=== PATIENT | male | born 1980 | race Caucasian/White ===

== ENCOUNTER 2019-10-29 16:21 | Emergency (ER) | payer OTHER ==
[~2019-10-29] VITALS: Ht 182.9 cm; Wt 90.1 kg
[2019-10-29 16:28] VITALS: BP 141/86
--- NOTE | 2019-10-29 17:05 | RAD ---
FOREARM LEFT History: Reason: Injury from fall today, pain with swelling / Spl. Instructions: / History: Technique: 2 views left forearm. Comparison: None. Findings: Acute transverse fracture of the left mid ulna. 8 mm radial displacement and 2 mm anterior displacement of the distal fracture fragment. There is adjacent soft tissue swelling. No additional fracture. Impression: 1. Acute displaced left mid ulnar fracture. Electronically signed by: Ayo Li DO (10/29/2019 5:02 PM) KIM
--- NOTE | 2019-10-29 17:10 | PHYS DOC ---
Past History Past Medical History: No Pertinent History Additional Past Surgical Histo: bilateral ear tubes Alcohol Use: None General Adult EDM: Chief Complaint: UPPER EXTREMITY PAIN HPI: HPI: 39-year-old male presents with left arm pain. The patient states that he hit his arm on the tail wearing of an airplane. He had a lot of pain at that time and was concerned that it might be broken. When he investigated the arm later, he noticed a divot and continued to have pain. He came here for evaluation of possible fracture. He has no other complaints or injuries at this time. Review of Systems: Review of Systems: Constitutional: Denies fever or chills Eyes: Denies change in visual acuity HENT: Denies nasal congestion or sore throat Respiratory: Denies cough or shortness of breath Cardiovascular: Denies chest pain or edema GI: Denies abdominal pain, nausea, vomiting, bloody stools or diarrhea : Denies dysuria Musculoskeletal: Left forearm pain Integument: Denies rash Neurologic: Denies headache, focal weakness or sensory changes Endocrine: Denies polyuria or polydipsia Lymphatic: Denies swollen glands Psychiatric: Denies depression or anxiety Heart Score: Risk Factors: Risk Factors: DM, Current or recent (<one month) smoker, HTN, HLP, family history of CAD, obesity. Risk Scores: Score 0 - 3: 2.5% MACE over next 6 weeks - Discharge Home Score 4 - 6: 20.3% MACE over next 6 weeks - Admit for Clinical Observation Score 7 - 10: 72.7% MACE over next 6 weeks - Early Invasive Strategies Physical Exam: PE: Constitutional: Well developed, well nourished, no acute distress, non-toxic appearance. [] HENT: Normocephalic, atraumatic, bilateral external ears normal, oropharynx moist, no oral exudates, nose normal. [] Eyes: PERRLA, EOMI, conjunctiva normal, no discharge. [] Neck: Normal range of motion, no tenderness, supple, no stridor. [] Cardiovascular:Heart rate regular rhythm, no murmur [] Lungs & Thorax: Bilateral breath sounds clear to auscultation [] Abdomen: Bowel sounds normal, soft, no tenderness, no masses, no pulsatile masses. [] Skin: Warm, dry, no erythema, no rash. [] Back: No tenderness, no CVA tenderness. [] Extremities: Tenderness over the midshaft left ulnar side, divot in the skin. [] Neurologic: Alert and oriented X 3, normal motor function, normal sensory function, no focal deficits noted. [] Psychologic: Affect normal, judgement normal, mood normal. [] Current Patient Data: Vital Signs: Vital Signs Date Time Temp Pulse Resp B/P (MAP) Pulse Ox O2 Delivery O2 Flow Rate FiO2 10/29/19 16:28 98.2 76 18 141/86 (104) 98 Room Air EKG: EKG: [] Radiology/Procedures: Radiology/Procedures: [] Impressions: FOREARM LEFT History: Reason: Injury from fall today, pain with swelling / Spl. Instructions: / History: Technique: 2 views left forearm. Comparison: None. Findings: Acute transverse fracture of the left mid ulna. 8 mm radial displacement and 2 mm anterior displacement of the distal fracture fragment. There is adjacent soft tissue swelling. No additional fracture. Impression: 1. Acute displaced left mid ulnar fracture. Electronically signed by: Ayo Nichols DO (10/29/2019 5:02 PM) [facility] DICTATED AND SIGNED BY: AYO NICHOLS DO DATE: 10/29/19 170 CC: ANNABEL LIEBERMAN DO; SHABANA CEE DO ~ Course & Med Decision Making: Course & Med Decision Making Pertinent Labs and Imaging studies reviewed. (See chart for details) The patient did break his ulna but not the radius. We have placed him in a splint and sling for comfort. He will follow-up with orthopedics for cast. He is stable for discharge at this time. [] Dragon Disclaimer: Cora Disclaimer: This electronic medical record was generated, in whole or in part, using a voice recognition dictation system. Departure Departure: Impression: Primary Impression: Fracture of left ulna Qualified Codes: S52.222A - Displaced transverse fracture of shaft of left ulna, initial encounter for closed fracture Disposition: 01 HOME/RESIDENCE PRIOR TO ADM Condition: STABLE Referrals: ANNABEL LIEBERMAN DO (PCP) Patient Instructions: Ulnar Fracture Justification of Admission: Justification of Admission: Justification of Admission Dx: N/A SHABANA CEE DO Oct 29, 2019 17:10
== END 2019-10-29 17:15 | disposition home or self-care (01) ==
LOC: ER 16:21
DX: S52.222A Displaced transverse fracture of shaft of left ulna, initial encounter for closed fracture (principal); W22.8XXA Striking against or struck by other objects, initial encounter; Y93.89 Activity, other specified; Y92.89 Other specified places as the place of occurrence of the external cause; Y99.8 Other external cause status
CPT/HCPCS: 29125; 73090; 99283